=== PATIENT | male | born 1960 | race Caucasian/White ===

== ENCOUNTER 2021-10-23 06:49 | Day surgery (SDC) | payer MEDICAID ==
[~2021-10-23] VITALS: Ht 175.3 cm; Wt 108.9 kg
[2021-10-23] MEDS ORDERED: MEPERIDINE 100 MG INJ. 100 MG/ML VIAL ONE (09:03)
[2021-10-23] MEDS: MIDAZOLAM HCL 5 MG/5 ML VIAL ONE ×2 (09:13→09:16)
[2021-10-23 13:10] VITALS: BP_SYST 139
== END 2021-10-23 10:45 | disposition home or self-care (01) ==
LOC: SDS 06:49 → SMU 07:01 → SDS 10:45
PROVIDERS: ATTEND Internal Medicine Gastroenterology
DX: K21.00 Gastro-esophageal reflux disease with esophagitis, without bleeding (principal); K29.70 Gastritis, unspecified, without bleeding; E66.01 Morbid (severe) obesity due to excess calories; Z20.822 Contact with and (suspected) exposure to COVID-19; Z87.891 Personal history of nicotine dependence; Z68.36 Body mass index [BMI] 36.0-36.9, adult
CPT/HCPCS: 36415 ×2; 43239; 87426; 88305; 88312; 88313; U0003; G0378; J2250; J2175